=== PATIENT | male | born 1985 | race Caucasian/White ===

== ENCOUNTER 2018-05-07 20:53 | Emergency (ER) | payer SELFPAY ==
[~2018-05-07 20:53] MED LIST: ACE500 PO; AUG500 PO; IBU600 PO; LOR5 PO
[2018-05-07 20:56] VITALS: BP 127/81
--- NOTE | 2018-05-07 20:59 | ER Report ---
History and Physical Time Seen By MD: 20:58 HPI/ROS CHIEF COMPLAINT: Right 4th finger distal infection HISTORY OF PRESENT ILLNESS: Patient is a 32-year-old male here with complaints of right 4th digit distal infection adjacent to the medial nail bed. Patient reports that over the past day he has had increased swelling and mild pus drainage from the site. 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 Patient has intact sensation, denies paresthesias and has good perfusion. Denies fevers or chills. REVIEW OF SYSTEMS: Constitutional: No fever, no chills. Musculoskeletal: full ROM of the finger SKIN: + erythema of the right 4th distal finger Neurological: NV exam intact Allergies: Coded Allergies: No Known Drug Allergies (Unverified , 05/07/18) Home Meds Active Scripts Sulfamethoxazole/Trimet 800-160 Mg Tab (BACTRIM DS TABLET) 1 Each Tablet, 1 TAB PO Q12H for 7 Days, #14 TAB Prov:OREN PAIGE DO 05/07/18 Discontinued Reported Medications Acetaminophen/Hydrocodone (Lortab 5/500) 5 Mg/500 Mg Tab, 0 PO Q4-6H, #20 0 Refills TAKE 1-2 TABLETS EVERY 4 HOURS NEEDED FOR PAIN 11/30/07 Amoxicillin/Clavulanate K (Augmentin) 500 Mg Tab, 0 PO BIDBS, #20 0 Refills TAKE ONE PILL BY MOUTH EVERY 12 HOURS 11/30/07 Acetaminophen (Tylenol) 500 Mg Tab, 1000 MG PO Q4-6H 11/30/07 Ibuprofen (Motrin) 600 Mg Tab, 600 MG PO Q6H, #20 0 Refills 11/30/07 Constitutional Vital Sign - Last 24 Hours 05/07/18 20:56 Temp 98.0 Pulse 95 Resp 14 B/P (MAP) 127/81 Pulse Ox 92 O2 Delivery Room Air Physical Exam General Appearance: The patient is alert, has no immediate need for airway protection and no signs of toxicity. NAD Neurological: No focal neurological deficits Skin: Erythema of the distal right 4th digit Musculoskeletal: Full range of motion of the 4th finger of the right hand, mild edema at the site [ ] DIFFERENTIAL DIAGNOSIS: After history and physical exam differential diagnosis was considered for abscess, cellulitis, ingrown nail Medical Decision Making ED Course/Re-evaluation ED Course Patient is a 32-year-old male here with complaints of right 4th digit distal swelling of the right finger which started over the past 24 hours. A digital block was performed using 1% lidocaine approximately 3 mL in the proximal digit creating adequate anesthesia to the distal finger. Patient tolerated procedure well. Using an 11 blade scalpel, I incised the medial aspect adjacent to the nail of the finger and expressed blood from the site. Hemostasis was achieved postprocedure. A sterile dressing was applied. Patient remained neurovascularly intact. I gave the patient his 1st dose of Bactrim prior to discharge and he was given a prescription for 7 days of Bactrim. Patient was stable at time of discharge. Decision to Disposition Date: May 07, 2018 Decision to Disposition Time: 21:53 Depart Departure Latest Vital Signs Vital Signs Date Time Temp Pulse Resp B/P (MAP) Pulse Ox O2 Delivery O2 Flow Rate FiO2 05/07/18 20:56 98.0 95 14 127/81 92 Room Air Impression: Primary Impression: Finger infection Condition: Improved Disposition: HOME OR SELF-CARE New Scripts Sulfamethoxazole/Trimet 800-160 Mg Tab (BACTRIM DS TABLET) 1 Each Tablet 1 TAB PO Q12H for 7 Days, #14 TAB Prov: OREN PAIGE DO 05/07/18 Departure Forms: ER Transition Record, Medications Reconciliation, Off Work/ School Form, School or Work Release?: Work Number of days to be released: 1 Patient Portal Information Patient Instructions: Abscess (ED), Trimethoprim (By mouth) Additional Instructions: Please take one tablet of Bactrim twice daily for 7 days. Please take the day off tomorrow to rest and apply ice to the site. Please return promptly if you develop worsening infection, redness down the hand, increased swelling. OREN PAIGE DO May 07, 2018 20:59
[2018-05-07] MEDS ORDERED: TRIMETH/SULFA DS 160-800MG TAB PO ONE (21:20)
[2018-05-07] MEDS ORDERED: SULF-198 PO (21:22)
== END 2018-05-07 21:35 | disposition home or self-care (01) ==
LOC: ER 21:23
DX: L02.511 Cutaneous abscess of right hand (principal); Z79.899 Other long term (current) drug therapy
CPT/HCPCS: 99283